=== PATIENT | male | born 1960 | race Caucasian/White ===

== ENCOUNTER 2022-08-27 16:55 | Emergency (ER) | payer OTHER, SELFPAY ==
[2022-08-27] VITALS (11 sets, daily range): BP systolic 138–177; BP diastolic 77–96; PULSE 60–74; RESP 18; TEMP 36.6; O2SAT 94–98; BMI 35.2
--- NOTE | 2022-08-27 17:01 | DI.RAD.S_ITS ---
PROCEDURE: XR ANKLE RT MIN 3V INDICATIONS: possibly dislocated/fractured ankle TECHNIQUE: 3 views of the ankle were acquired. COMPARISON: None. FINDINGS: Bones: There is a comminuted spiral fracture in the distal fibular in involving ankle mortise. Injection, there is a transverse fracture of the medial malleolus. Furthermore, there is a minimally displaced posterior malleolar fracture. Ankle mortise is on even with widening of the medial joint space. There is widening of the distal tibial fibular space compatible with tear of the syndesmosis. Soft tissues: Small tibiotalar joint effusion. Achilles tendon appears normal. Soft tissue swelling IMPRESSION: 1. Trimalleolar fractures. 2. Uneven ankle mortise. Dictated by: Derrick Cardenas M.D. on 08/27/2022 at 17:48 Approved by: Derrick Cardenas M.D. on 08/27/2022 at 17:50
--- NOTE | 2022-08-27 18:23 | ED.LOWEXIN ---
HPI - Extremity Injury (Lower) General Chief Complaint: Extremity Injury, Lower Stated Complaint: rt ankle deformity Time Seen by Provider: 08/27/22 18:01 Source: patient and EMS Mode of arrival: EMS History of Present Illness HPI Narrative: 62-year-old male nonsmoker with noncontributory medical history presents by EMS for evaluation of an obvious deformity to his right ankle. He states that he was walking on his [place] and stepped awkwardly on a carpeted area that slipped causing his ankle to invert. He states that he had significant pain and a more obvious deformity and then pull on his ankle and states that it became more aligned after that. He denies any head neck or back pain. Denies numbness, tingling or weakness. Denies any pain in his hips or knees. He states the medics gave him some medication through the IV on his way that seemed to help somewhat. He denies any prodromal symptoms contributing to his injuries such as dizziness, weakness or lightheadedness. He denies any chest pain or shortness of breath. Related Data Previous Rx's Medication Instructions Recorded ondansetron 4 mg disintegrating 4 mg PO TID-QID PRN nausea and 08/27/22 tablet vomiting #10 tabs ondansetron 4 mg disintegrating 4 mg PO TID-QID PRN nausea and 08/27/22 tablet vomiting #10 tabs oxycodone 5 mg tablet 5 mg PO Q6H PRN pain #20 tabs 08/27/22 oxycodone 5 mg tablet 5 mg PO Q6H PRN pain #20 tabs 08/27/22 Allergies Allergy/AdvReac Type Severity Reaction Status Date / Time No Known Drug Allergies Allergy Verified 08/27/22 19:20 Review of Systems Review of Systems Narrative: GENERAL: Denies chills, fatigue, malaise, fever, sweats. HEENT: Denies sinus pain, ear pain, sore throat, difficulty swallowing, dizziness. RESPIRATORY: Denies dyspnea, cough, wheezing, hemoptysis, sputum. CARDIOVASCULAR: Denies chest pain, palpitations, orthopnea, edema, GASTROINTESTINAL: Denies nausea, vomiting, abdominal pain, diarrhea, constipation, melena. : Denies dysuria, frequency, incontinence, hematuria, urinary retention. MUSCULOSKELETAL: See HPI SKIN: Denies rash, skin lesions, or other NEUROLOGIC: Denies weakness, headache, numbness, change in speech, confusion, seizures, incoordination. PSYCHIATRIC: No concerning psychosocial issues. 12 point review of systems is negative except for those stated above Patient History Social History Smoking Status: Never smoker Smoking Status: Never smoker alcohol intake frequency: 0-2 drinks per day Substance Use Type: does not use Exam Narrative Exam Narrative: GENERAL: [62] year old patient appears stated age. Well-developed patient, in mild distress. GCS 15 HEAD: Atraumatic. Normocephalic. EYES: Pupils equal round and reactive. Extraocular motions intact. No scleral icterus. No injection or drainage. ENT: Nose without bleeding, purulent drainage. Throat without erythema, tonsillar hypertrophy or exudate. Airway patent. NECK: Trachea midline. Non tender CARDIOVASCULAR: Regular rate and rhythm without murmurs, gallops, or rubs. RESPIRATORY: Clear to auscultation. Breath sounds equal bilaterally. No wheezes, rales, or rhonchi. GASTROINTESTINAL: Abdomen soft, non-tender, nondistended. EXTREMITIES: No pain in bilateral hips or knees, compartment soft, right ankle with no obvious deformity though there is moderate swelling, cap refill and sensation intact distal to the injury, no pain with squeeze test or at proximal fibula BACK: Nontender without deformity or crepitance. No flank tenderness. NEURO: AOx3. SKIN: No rash or erythema of visible areas Initial Vital Signs Initial Vital Signs: Vital Signs Pulse Rate 67 08/27/22 17:00 Blood Pressure 156/88 H 08/27/22 17:00 Pulse Oximetry 97 08/27/22 17:00 Procedures Orthopedic Fracture Reduction Fracture #1: Time Out Performed: Yes Side: right Fracture Reduction Location: fibula Analgesia: other (Dilaudid) Technique: direct manipulation Post Reduction X-rays Demonstrate: acceptable reduction Post-reduction neuro exam: intact Post-reduction vascular exam: intact Splint Applied: Yes Patient Tolerated Procedure: Well Orthopedic Splinting/Casting Injury #1: Side: right Lower Extremity Injury Location: ankle Lower Extremity Immobilizer: posterior splint and stirrup splint Post splinting neuro exam: intact Post splinting vascular exam: intact Placed by: Provider Course Orders Ordered: ED Orders 08/27/22 17:01 XR ankle RT min 3V Stat 08/27/22 19:01 XR ankle RT 2V Stat Discontinued Medications Hydromorphone HCl (Hydromorphone 1 Mg Inj) 1 mg IV NOW ONE Stop: 08/27/22 18:32 Last Admin: 08/27/22 18:43 Dose: 1 mg Documented By: CHRIS Oxycodone/Acetaminophen (Oxycodone/Apap 5/325 Prepack) 1 bottle MISC SEEINSTR ONE Stop: 08/27/22 19:15 Last Admin: 08/27/22 19:19 Dose: 1 bottle Documented By: Consultations Consultation #1: Discussed with on-call orthopedist, Dr. Aden, we have discussed the history and physical exam. He is reviewed imaging and agrees with the plan to splint, non weightbear, pain control, close follow-up to plan for surgical intervention in near future Vital Signs Vital signs: Vital Signs - 8 hr 08/27/22 17:06 08/27/22 17:12 08/27/22 17:00 Temperature 97.8 F Pulse Rate 65 Pulse Rate [Right Dorsalis Pedis] 68 Respiratory Rate 18 Blood Pressure 156/88 H 156/88 H Pulse Oximetry 97 Oxygen Delivery Method Room Air 08/27/22 17:00 08/27/22 17:30 08/27/22 17:31 Temperature Pulse Rate 67 60 Pulse Rate [Right Dorsalis Pedis] Respiratory Rate Blood Pressure 159/91 H Pulse Oximetry 97 95 Oxygen Delivery Method 08/27/22 17:31 08/27/22 18:00 08/27/22 18:00 Temperature Pulse Rate 65 64 Pulse Rate [Right Dorsalis Pedis] Respiratory Rate Blood Pressure 177/95 H Pulse Oximetry 95 96 Oxygen Delivery Method Room Air 08/27/22 18:30 08/27/22 18:30 08/27/22 18:43 Temperature Pulse Rate 61 67 Pulse Rate [Right Dorsalis Pedis] Respiratory Rate Blood Pressure 153/93 H Pulse Oximetry 98 97 Oxygen Delivery Method 08/27/22 18:43 08/27/22 18:50 08/27/22 18:50 Temperature Pulse Rate 70 Pulse Rate [Right Dorsalis Pedis] Respiratory Rate Blood Pressure 164/96 H 169/95 H Pulse Oximetry 94 Oxygen Delivery Method 08/27/22 19:00 08/27/22 19:00 08/27/22 19:11 Temperature Pulse Rate 74 69 Pulse Rate [Right Dorsalis Pedis] Respiratory Rate Blood Pressure 153/91 H Pulse Oximetry 95 94 Oxygen Delivery Method 08/27/22 19:11 Temperature Pulse Rate Pulse Rate [Right Dorsalis Pedis] Respiratory Rate 18 Blood Pressure 138/77 Pulse Oximetry Oxygen Delivery Method MDM - Extremity Injury (Lower) MDM Narrative Medical decision making narrative: [62] year old patient presents with isolated, closed and neurovascularly intact ankle injury Multiple etiologies for patient's symptoms considered including, but not limited to: [Fracture versus dislocation versus other] Prior Charts reviewed in our EMR Primary Historian: patient Imaging reviewed: Trimalleolar fracture both pre and post reduction attempt. Consultations: discussed with Dr. Aden, see details above Patient's symptoms improved over duration of stay with above-stated therapies. There was attempt reduction but large amount of swelling likely played a role in preventing much success. His compartments are soft, he is neurovascularly intact. Splinting has been performed. He understands the importance of nonweightbearing. He understands that this is a surgical injury and that close follow-up with ortho is very important. He has been given contact information for local orthopedist but states that he lives in [place] and has had good experience with Dr. Thurston down there and will likely follow up with him. Images and been printed on a disc and sent with him. Findings and discharge diagnosis discussed with patient/family followed by verbalization of understanding Return precautions discussed with patient/family whom verbalize understanding of diagnosis and plan Discharge Plan Departure Patient Disposition: Home Clinical Impression: Closed trimalleolar fracture of ankle Instructions: Ankle Fracture Activity Restrictions/Additional Instructions: *You have been diagnosed with [closed R ankle trimalleolar fracture ] *What to do: *Please continue to take your regular medications as directed. [ x] New medication prescriptions sent to your pharmacy: [facility] ] [ ] New medication written as a paper prescription [x] Tylenol and occasional Motrin for pain *Please follow up with [CLARISSA ] of [facility] in 2-3 days, call for an appointment. Let them know you were seen in the Emergency Department and that we ask that you be seen in follow up. We will electronically transmit a record of today's note if your PCP is in our system *NO WEIGHT BEARING until follow up with orthopedics *Return to Emergency Department if you should have any new, worsening or concerning symptoms, such as [worsening pain, significant swelling, cold extremities, numbness, tingling, weakness or other bothersome symptoms Splint Care: Keep splint clean and dry. Elevated affected body part to decrease swelling. OK to use ice pack on the affected body part. Use for 15-20 minutes each time, for 5-6x per day. If you develop worsening pain, numbness, tingling, discoloration of the affected body part, loosen the splint by loosening the CHRISTOPHER wrap, and either see your doctor for an urgent re-assessment, or return to the Emergency Department. Return to the Emergency Department for any new or worsening symptoms. You have been prescribed a short course of narcotic medications. These are potentially dangerous and addictive medications that should be used carefully. While on these medications you cannot drive or operate heavy machinery. Additionally, you cannot sign legal documents or perform any duties such as this. 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 Please understand that we cannot provide further refills of narcotics or controlled substances through the ED and your pain management will need to be through your Primary Care Provider Prescriptions: New oxycodone 5 mg tablet 5 mg PO Q6H PRN (Reason: pain) Qty: 20 0RF ondansetron 4 mg tablet,disintegrating 4 mg PO TID-QID PRN (Reason: nausea and vomiting) Qty: 10 0RF ondansetron 4 mg tablet,disintegrating 4 mg PO TID-QID PRN (Reason: nausea and vomiting) Qty: 10 0RF oxycodone 5 mg tablet 5 mg PO Q6H PRN (Reason: pain) Qty: 20 0RF Referrals: Pascual Aden MD [Physician] - Stand Alone Forms: Patient Portal/API
[2022-08-27] MEDS: HYDROMORPHONE 1 MG INJ IV (18:43)
--- NOTE | 2022-08-27 19:01 | DI.RAD.S_ITS ---
PROCEDURE: XR ANKLE RT 2V INDICATIONS: post reduction TECHNIQUE: 3 views of the ankle were acquired. COMPARISON: [facility], CR, XR ANKLE RT MIN 3V, 08/27/2022, 17:08. FINDINGS: Bones: Trimalleolar fractures are again noted. There is slightly improved alignment. Ankle mortise is normally aligned. No suspicious bony lesions. Soft tissues: No tibiotalar joint effusion. Achilles tendon appears normal. IMPRESSION: 1. Trimalleolar fractures. 2. After closed reduction, there is improved alignment. Dictated by: Derrick Cardenas M.D. on 08/27/2022 at 19:37 Approved by: Derrick Cardenas M.D. on 08/27/2022 at 19:38
[2022-08-27] MEDS: OXYCODONE/APAP 5/325 PREPACK 1 BOTTLE MISC (19:19)
== END 2022-08-27 19:30 | disposition home or self-care (01) ==
PROVIDERS: Emergency Provider Emergency Medicine
DX: S82.851A Displaced trimalleolar fracture of right lower leg, initial encounter for closed fracture (principal); X50.1XXA Overexertion from prolonged static or awkward postures, initial encounter
CPT/HCPCS: 27788; 73600; 73610; 96374; 99284; J1170